=== PATIENT | male | born 1980 | race Caucasian/White ===

== ENCOUNTER 2020-01-15 11:19 | Emergency (ER) | payer BC ==
[~2020-01-15] VITALS: Ht 185.4 cm; Wt 81.1 kg
--- NOTE | 2020-01-15 12:05 | NUR ---
PT TO ROOM 27 PER PEDIS. PT C/O RIGHT TESTICULAR PAIN THAT COMES AND GOES, BUT FEELS LIKE A SQUEEZING SENSATION. PT HAS A HISTORY STD THAT INFECTED THE PROSTATE. PT HAS BEEN ALL OVER INCLUDING [place] TO HAVE THIS PROBLEM DIAGNOSED. HISTORY OF PROSTATITIS SINCE 2016. 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 TESTICULAR EXAM PERFORMED BY TUBE MOLDER FIBERGLASS WITH RN IN ROOM.
--- NOTE | 2020-01-15 12:30 | NUR ---
PT TO US PER MICHAEL, FAMILY ACCOMPANIED PATIENT.
--- NOTE | 2020-01-15 13:30 | NUR ---
PT BACK TO ROOM, AWAITING RESULTS.
--- NOTE | 2020-01-15 14:12 | NUR ---
PT RESTING IN BED WITHOUT DIFFICULTY. FAMILY AT BEDSIDE. WILL CONTINUE TO MONITOR.
--- NOTE | 2020-01-15 14:34 | NUR ---
PT UP TO COLLECT URINE. IN TO DISCUSS US RESULTS.
--- NOTE | 2020-01-15 14:44 | NUR ---
URINE COLLECTED AND SENT
[2020-01-15 15:13] LABS: MICROSCOPIC NOT IND
[2020-01-15 15:17] LABS: CULTURE INDICATED? NO
[2020-01-15 15:46] VITALS: BP 102/63
--- NOTE | 2020-01-15 15:46 | NUR ---
DISCHARGE INSTRUCTIONS GIVEN TO PATIENT. PT TEACHES BACK ON ALL EDUCATION AND FOLLOW UP INFORMATION. PT AMBULATED OUT OF ED WITH RN AND GIRLFRIEND PAMELLA WRIGHT.
== END 2020-01-15 16:02 | disposition home or self-care (01) ==
LOC: ED 16:00
DX: N43.3 Hydrocele, unspecified (principal)
CPT/HCPCS: 76870; 81003; 99284